=== PATIENT | female | born 1950 | race Caucasian/White ===

== ENCOUNTER 2021-09-27 05:42 | Day surgery (SDC) | payer MEDICARE, BC ==
[2021-09-20 14:34] VITALS: BMI 26.0
[2021-09-22 10:44] LABS: Hemoglobin 14.9 g/dL (12.0-15.5); Mean Corpuscular HGB CONC 32.5 g/dL (32.0-36.0); Mean Corpuscular Hemoglobin 30.2 pg (27.0-33.0); Mean Corpuscular Volume 92.9 fl (81.6-98.3); Mean Platelet Volume 9.8 fl (7.4-10.4); Platelet Count 311 10x3/uL (150-450); RBC Distribution Width 12.6 % (11.5-14.5); Red Blood Cell (RBC) Count 4.94 10x6/uL (3.90-5.03); White Blood Cell (WBC) Count 7.2 10x3/uL (3.5-10.5)
[2021-09-22 11:07] LABS: Anion Gap 14 mmol/L (10-20); BUN (Urea Nitrogen) 16 mg/dL (9.8-20.1); Calc. Creatinine Clearance 0 mL/min (70-130); Calcium 9.6 mg/dL (7.8-10.44); Carbon Dioxide 28 mmol/L (23-31); Chloride 101 mmol/L (98-107); Glucose 95 mg/dL (80-115); Potassium 4.1 mmol/L (3.5-5.1); Sodium 139 mmol/L (136-145)
[2021-09-22 21:50] LABS: SARS-CoV-2 PCR by NAA Not Detected (NotDetected)
[2021-09-27] MEDS ORDERED: CeleCOXIB 100 MG CAP ONE (06:10)
[2021-09-27] MEDS ORDERED: Gabapentin 300 MG CAP ONE (06:10)
[2021-09-27] MEDS ORDERED: Famotidine/PF 20 mg/2ml Vial ONE (06:11)
[2021-09-27] MEDS ORDERED: Lidocaine 1% MPF 2 ML VIAL ONE (06:58)
[2021-09-27] MEDS ORDERED: Levofloxacin 500 mg/D5W 100 ml Premix Bag ONE (07:26)
[2021-09-27] MEDS ORDERED: Fentanyl 100 MCG/2 ML VIAL ONE (07:55)
[2021-09-27] MEDS ORDERED: PROPOFOL 20 ML ONE (07:55)
[2021-09-27] MEDS ORDERED: Lidocaine 1% w/Epinephrine 1:100K 20 ML VIAL ONE (07:57)
[2021-09-27] MEDS ORDERED: Lidocaine 1% PF 5 ML VIAL ONE (08:17)
[2021-09-27] MEDS ORDERED: PHENYLEPHRINE-NS 100 MCG/ML 10 ML SYRINGE ONE (08:55)
[2021-09-27] MEDS ORDERED: Ketorolac Tromethamine 30 MG/ML VIAL ONE (09:23)
== END 2021-09-27 13:15 | disposition home or self-care (01) ==
LOC: CSHSDC 05:42
PROVIDERS: ATTEND Obstetrics & Gynecology
PROC: 0JQC0ZZ Repair Pelvic Region Subcutaneous Tissue and Fascia, Open Approach (ICD-10-PCS; principal; 2021-09-27)
DX: N81.6 Rectocele (principal); E78.5 Hyperlipidemia, unspecified; E03.9 Hypothyroidism, unspecified; J45.909 Unspecified asthma, uncomplicated; K21.9 Gastro-esophageal reflux disease without esophagitis; Z79.890 Hormone replacement therapy; Z79.899 Other long term (current) drug therapy; Z88.0 Allergy status to penicillin; Z88.2 Allergy status to sulfonamides; Z90.710 Acquired absence of both cervix and uterus; Z20.822 Contact with and (suspected) exposure to COVID-19
CPT/HCPCS: 57250; 80048; 85027; 86850; 86900; 86901; U0003; U0005; J1885; J1956; J2704; J3010; J3490; S0028

== ENCOUNTER 2021-09-28 15:34 | Emergency (ER) | payer MEDICARE, BC | END 2021-09-28 17:16 | disposition home or self-care (01) | LOC: CSHERS 15:34 | DX: R00.1 Bradycardia, unspecified (principal) | CPT/HCPCS: 93005 ==